=== PATIENT | female | born 1990 | race Hispanic/Latino ===

== ENCOUNTER 2023-12-03 15:26 | Emergency (ER) | payer SELFPAY ==
[2023-12-03 15:27] VITALS: BP 101/54; PULSE 121; RESP 19; TEMP 37.3; O2SAT 93
[2023-12-03 15:32] VITALS: BMI 36.9
--- NOTE | 2023-12-03 15:42 | EX.ED.DYSGE1 ---
HPI History of Present Illness Chief Complaint: Fever Informant: patient Limited: language barrier Onset/Context/Timing Onset: Days (3) Timing: Continuous Quality: Subjective fevers Location: Generalized Associated Symptoms Associated Symptoms ED: chest pain, headache, test positive and sore throat Narrative Narrative: Patient presents with fever that has been constant for the past 3 days. Patient did not take her temperature at home. Patient states she felt warm and covered up with a blanket. Patient states nothing makes her fever better and nothing makes it worse. Patient states that she was recently treated for tuberculosis while she was in [place]. Patient states she took the antibiotics for 4 months. Patient states that she stopped taking the antibiotics when she found out she was . Patient admits to some lower abdominal pain. Patient states the pain radiates into her back. Patient states her pain goes down her lower extremities. Patient denies any dysuria or hematuria. Panflu higher risk groups: [facility] Medical History (Updated 12/03/23 @ 23:[address] Kb Rivera DO) Tuberculosis Home Medications ?Medication ?Instructions ?Recorded ?Last Taken ?Type amoxicillin 875 mg-potassium 875 mg PO Q12H #20 TABLETS 12/03/23 Unknown Rx clavulanate 125 mg tablet Allergy/AdvReac Type Severity Reaction Status Date / Time No Known Allergies Allergy Verified 12/03/23 15:32 Surgical History no surgical history no surgical history Social History Smoking Status: Never smoker ROS ROS ED Constitutional Constitutional ED: Denies chills, fever(s) or sweats Eyes Eyes: Denies blurry vision or change in vision ENT ENT ED: Reports sore throat; Denies rhinorrhea Cardiovascular Cardiovascular: Reports chest pain; Denies palpitations Respiratory/Chest Respiratory/Chest: Denies cough or dyspnea Gastrointestinal Gastrointestinal: Denies nausea or vomiting Genitourinary Genitourinary ED: Denies dysuria or hematuria Musculoskeletal Musculoskeletal: Reports back pain; Denies neck pain Integumentary Denies abscess or rash Neurologic Neurologic: Reports headache(s); Denies weakness Allergic/Immunologic Allergic/Immunologic ED: Denies mouth swelling or urticaria EXAM Physical Exam Const Vital Signs: 12/03/23 15:27 12/03/23 19:00 12/03/23 20:34 Temperature 99.2 F H 98.3 F Temperature Source Temporal Oral Pulse Rate 121 H 88 79 Pulse Rate [Lying] Pulse Rate [Sitting (for 1 minute prior to obtaining)] Pulse Rate [Standing (for 1 minute prior to obtaining)] Respiratory Rate 19 H 18 18 Blood Pressure 101/54 L 89/54 L 93/54 L Blood Pressure [Lying] Blood Pressure [Sitting (for 1 minute prior to obtaining)] Blood Pressure [Standing (for 1 minute prior to obtaining)] Blood Pressure Mean 69 65 67 Blood Pressure Mean [Lying] Blood Pressure Mean [Sitting (for 1 minute prior to obtaining)] Blood Pressure Mean [Standing (for 1 minute prior to obtaining)] Pulse Ox 93 93 97 Oxygen Delivery Method Room Air Room Air Room Air 12/03/23 22:00 12/03/23 22:06 Temperature Temperature Source Pulse Rate 86 Pulse Rate [Lying] 89 Pulse Rate [Sitting (for 1 minute prior to obtaining)] 88 Pulse Rate [Standing (for 1 minute prior to obtaining)] 99 Respiratory Rate 17 Blood Pressure 92/59 L Blood Pressure [Lying] 83/53 L Blood Pressure [Sitting (for 1 minute prior to obtaining)] 100/66 Blood Pressure [Standing (for 1 minute prior to obtaining)] 72/63 L Blood Pressure Mean 70 Blood Pressure Mean [Lying] 63 Blood Pressure Mean [Sitting (for 1 minute prior to obtaining)] 77 Blood Pressure Mean [Standing (for 1 minute prior to obtaining)] 66 Pulse Ox 98 Oxygen Delivery Method Room Air Positive well nourished, well developed, alert and oriented x3 General Appearance ED: well developed Orientation / Consciousness: awake HEENT Reports normocephalic normocephalic and atraumatic Neck full ROM, No nuchal rigidity, supple, no meningeal signs and no JVD Resp normal respiratory effort and clear to auscultation bilaterally Cardio regular rate and regular rhythm GI soft to palpation and non-distended Palpation: tender RLQ and suprapubic; Negative for guarding or rebound tenderness present Extremity full ROM General Extremety ED: Yes calf tenderness General Extremity: calf tenderness Neuro oriented x3, CN's II-XII intact bilaterally, moves all extremities, no focal motor deficits and no sensory deficits noted Libia Coma Scale: document GCS findings Spontaneous Obeys Commands Oriented 15 Sensorium / Orientation: awake and alert Meningeal Signs: no meningeal signs Speech: speech normal Motor Exam: muscle tone normal throughout Psych mental status grossly normal MDM MDM MDM Narrative Medical decision making narrative: Differential diagnosis includes pneumonia, tuberculosis, strep pharyngitis, viral pharyngitis, urinary tract infection, ovarian cyst, ectopic , DVT, and electrolyte abnormality. Chest x-ray will be obtained to assess for pneumonia. Urinalysis will be obtained to assess for urinary tract infection. Quantitative hCG will be obtained to assess for . Venous duplex of the lower extremities will be obtained to assess for DVT. CBC will be obtained to assess for leukocytosis and anemia. Basic metabolic profile will be obtained to assess for electrolyte abnormality and renal function. GC and Chlamydia PCR will be obtained to assess for STDs. Rapid strep will be obtained to assess for strep pharyngitis. COVID-19, influenza, and RSV PCR will be obtained to assess for viral illness. Blood cultures will be obtained to assess for sepsis. Urine culture will be obtained to assess for urinary tract infection. Blood type and Rh will be obtained to assess for blood type. Lab Data Attestation: I reviewed the patient's lab results. Lab results narrative: CBC was reviewed and was within normal limits. Basic metabolic profile was reviewed. Potassium was slightly low at 3.3. Sodium was slightly low at 131. The remainder was essentially within normal limits. PT with INR and PTT were reviewed. Pro time was 16.1. INR was 1.3. PTT was 38.2. Urinalysis was reviewed. There is no evidence of urinary tract infection or hematuria. Lactate was reviewed and was normal at 1.2. Quantitative hCG was reviewed and was [address]. COVID-19 PCR was reviewed and was negative. Influenza PCR was reviewed and was negative for influenza A and influenza B. RSV PCR was reviewed and was negative. Rapid strep PCR was reviewed and was negative. GC and Chlamydia PCR was reviewed and was negative. Labs: Laboratory Results - last 24 hr 12/03/23 12/03/23 16:00 16:48 WBC 8.0 RBC 4.85 Hgb 12.2 Hct 38.0 MCV 78.4 L MCH 25.2 L MCHC 32.1 RDW Std Deviation 43.4 RDW Coeff of Ken 15.3 H Plt Count 326 MPV 9.5 Immature Gran % (Auto) 0.400 Neut % (Auto) 81.9 H Lymph % (Auto) 9.9 L [place] % (Auto) 7.4 Eos % (Auto) 0.1 Baso % (Auto) 0.3 Absolute Neuts (auto) 6.5 Absolute Lymphs (auto) 0.79 L Nucleated RBC % 0 PT 16.1 H INR 1.3 APTT 38.2 H Sodium 131 L Potassium 3.3 L Chloride 100 Carbon Dioxide 24.0 Anion Gap 7 BUN 5 L Creatinine 0.44 L Estim Creat Clear Calc 195.07 Est GFR (MDRD) Af Amer 213 Est GFR (MDRD) Non-Af 176 BUN/Creatinine Ratio 11.3 Glucose 103 Lactic Acid 1.2 Calcium 8.6 HCG, Quant 02976 H Urine Color Yellow Urine Clarity Clear Urine pH 6.0 Ur Specific Line [place] 1.020 Urine Protein 30 H Urine Glucose (UA) Normal Urine Ketones 5 H Urine Occult Blood 10 H Urine Nitrite Negative Urine Bilirubin 1 H Urine Urobilinogen 8 H Ur Leukocyte Esterase 25 H Urine RBC 0 SEEN Urine WBC 0 SEEN Ur Squamous Epith Cells 0-5 SEEN Urine Bacteria 0 SEEN Urine Mucus 0 SEEN Radiography Chest X-Ray - ED: 2 View, Read by ED Physician, Read by Radiologist and Right Infiltrate Diagnostic Testing: Clinical Impression(s) from Imaging Studies Venous Doppler Study 12/03/23 16:05 Interpretation Summary Deep veins of the bilateral lower extremities are patent and compressible segmentally. There is no evidence of bilateral lower extremity deep vein thrombosis. The bilateral great saphenous veins appear patent and compressible segmentally. Ordering Physician: Kb Rivera Performed By: Ralph Pedroza, T Chest X-Ray 12/03/23 16:59 IMPRESSION: Right upper lobe consolidation and volume loss. Bilateral interstitial prominence and patchy infiltrates.. Electronically Signed: Paul Dougherty DO at 17:09 EDT , Obstetrics Ultrasound 12/03/23 17:19 IMPRESSION: Single intrauterine gestation 7 weeks 4 days with estimated due date July 17, 2024. Electronically Signed: Bridger New MD at 18:16 EDT , Venous duplex of the lower extremities was obtained. There is no evidence of DVT. PA and lateral chest x-rays obtained. There are 2 views. On my independent interpretation, there is a right upper lobe infiltrate and consolidation. Bony thorax is normal. There is no cardiomegaly noted. Radiologist also interpreted the x-ray and agrees. Pelvic ultrasound was obtained. There is a single intrauterine gestation of 7 weeks 4 days. There is no evidence of ectopic . This was interpreted by the radiologist was also independently reviewed by myself. Management Discussion w/another healthcare provider: [facility] (Dr. Nugent from infectious disease) Treatment and Re-Evaluation :: Patient was given IV fluids. Patient was given Tylenol for her fever. Patient was advised of her findings. Case was discussed with Dr. Nugent from infectious disease. He stated that since the patient had been on TB treatment for 4 months, he does not believe that this is an active TB. He does not feel the patient needs to be treated with antituberculosis medications. He recommended covering the patient with community-acquired pneumonia antibiotics. Patient was given Rocephin and Zithromax here. Patient was given a prescription for Augmentin. Patient was instructed to follow-up with the health department. Patient understood and was agreeable with the plan. All questions were answered. Discharge Plan Triage Chief Complaint: Fever ED Provider: Kb Rivera Dx/Rx/DC Orders Clinical Impression: Pneumonia, Instructions: ED Pneumonia (Adult), ED Prescriptions: New amoxicillin-pot clavulanate 875-125 mg tablet 875 mg PO Q12H Qty: 20 0RF Primary Care Provider: Care Physician,No Primary Referrals: Kelsey Dias MD [Med Staff - Active Staff] - 5-7 Days Vira Feliz [Non-Staff] - 5-7 Days Trung Webb [Non-Staff] - 5-7 Days Activity Restrictions/Additional Instructions: Follow-up with the [facility] in 5 to 7 days. Take your antibiotics as prescribed. Continue using Tylenol as needed for fevers. Print Language: Bhutanese Disposition Disposition: Home, Self Care
--- NOTE | 2023-12-03 16:05 | VDLE_ITS ---
Reason For Study: BLE Pain RIGHT LEFT GSV is normal. GSV is normal. CFV is compressible, spontaneous, phasic, CFV is compressible, spontaneous, phasic, competent and demonstrates normal competent, and demonstrates normal augmentation. augmentation. FV is compressible, spontaneous, phasic, FV is compressible, spontaneous, phasic, competent and demonstrates normal competent and demonstrates normal augmentation. augmentation. POP V is compressible, spontaneous, phasic, POP V is compressible, spontaneous, phasic, competent and demonstrates normal competent and demonstrates normal augmentation. augmentation. T/P Trunk is compressible. T/P Trunk is compressible. PTV is compressible. PTV is compressible. RT PerV is compressible. LT PerV is compressible. Procedure This is a venous duplex using B-mode, color flow and spectral Doppler. Exam performed portable in ED. The exam was diagnostic. A preliminary report was called and/or faxed to Dr. Rivera. VL/Venous Duplex US - Gabriel Extrem Interpretation Summary Deep veins of the bilateral lower extremities are patent and compressible segme ntally. There is no evidence of bilateral lower extremity deep vein thrombosis. The bilateral great saphenous veins appear patent and compressible segmentally. Ordering Physician: Kb Rivera Performed By: Ralph Pedroza RVT
[2023-12-03 16:17] LABS: Bacteria 0 SEEN /hpf (None Seen); Mucous, Urine 0 SEEN /hpf (<or=2+); Red Blood Cells-Urine 0 SEEN /hpf (0-5); White Blood Cells 0 SEEN /hpf (0-5)
[2023-12-03 16:27] LABS: Color, Urine Yellow (Yellow); Glucose, Dipstick Normal (Normal); Ketone-Dipstick 5 mg/dl (Negative); Leukocyte Esterase-Dipstick 25 /ul (Negative); Nitrite-Dipstick Negative (Negative); Occult Blood-Urine 10 /ul (Negative); Protein-Dipstick 30 mg/dl (Negative); Urine Clarity Clear (Clear); Urine Urobilinogen 8 mg/dl (Normal)
[2023-12-03 16:29] LABS: Absolute Lymphocyte Count 0.79 X10^3/uL (0.83-4.51); Absolute Neutrophil Count 6.5 X10^3/uL (2.0-7.7); Basophil# 0.02 X10^3/uL; Basophil% 0.3 % (0-1); Eosinophil# 0.01 X10^3/uL; Eosinophils% 0.1 % (0-5); Hemoglobin 12.2 g/dL (12.0-15.0); Lymphocyte # 0.79 X10^3/ul (0.83-4.51); Lymphocyte % 9.9 % (19-41); Mean Corp Hgb Conc 32.1 g/dL (32-36); Mean Corpuscular Hgb 25.2 pg (27.0-32.0); Mean Corpuscular Volume 78.4 fL (81-99); Mean Platelet Vol. 9.5 fl (6.2-12.0); Monocyte# 0.59 X10^3/uL; Monocyte% 7.4 % (0-10); NRBC Flagged by Analyzer 0 % (0-5); Neutrophil # 6.52 X10^3/uL (2.7-7.7); Neutrophil % 81.9 % (47-70); Platelet Count 326 K/mm3 (150-450); RBC Distribution Width CV 15.3 % (11.6-14.6); RBC Distribution Width SD 43.4 fl (35.1-43.9); Red Blood Count 4.85 M/mm3 (4.2-5.4)
[2023-12-03 16:33] LABS: International Normalized Ratio 1.3; Prothrombin Time (Protime)PT. 16.1 SECONDS (11.7-14.9)
[2023-12-03 16:34] LABS: Partial Thromboplast Time 38.2 Seconds (24.1-36.2)
[2023-12-03 16:40] LABS: Anion Gap 7 (5-15); BUN 5 mg/dL (7-18); BUN/Creat Ratio 11.3 RATIO (10-20); Calcium,Total 8.6 mg/dL (8.5-10.1); Chloride 100 mmol/L (98-107); Creatinine, Serum 0.44 mg/dL (0.55-1.02); EST Glomerular Filtration Rate 176 mL/min (>60); Est Glom Filt Rate - Afr Amer 213 mL/min (>60); Estimated Creatinine Clearance 195.07 ml/min; Glucose 103 mg/dL (74-106); Potassium 3.3 mmol/L (3.5-5.1); Sodium Level 131 mmol/L (136-145)
[2023-12-03 16:48] LABS: Urine Bilirubin Dipstick 1 mg/dL (Negative)
[2023-12-03 16:49] LABS: Squamous Epithelial Cells - UA 0-5 SEEN /hpf (5-10)
[2023-12-03] MEDS: Acetaminophen 500 MG Tablet 1000 MG PO (16:50)
[2023-12-03] MEDS: 0.9% Normal Saline (1000mL) 1,000 ML 1000 ML IV ×3 (16:50→22:21)
--- NOTE | 2023-12-03 16:59 | RAD_ITS ---
INDICATION: Fever EXAMINATION/TECHNIQUE: X-RAY - XR Chest 2 Views COMPARISON: FINDINGS: LINES/DEVICES: None. LUNGS: Right upper lobe consolidation and volume loss. Bilateral interstitial prominence and patchy infiltrates.. No pneumothorax. MEDIASTINUM AND CARDIOVASCULAR STRUCTURES: Cardiac silhouette not enlarged. Central airways and mediastinal contour are unremarkable. BONES AND SOFT TISSUES: Unremarkable.
[2023-12-03 17:10] LABS: hCG Titer Quant., Serum 58623 mIU/mL (1-3)
--- NOTE | 2023-12-03 17:19 | US_ITS ---
STUDY: FIRST TRIMESTER OBSTETRICAL ULTRASOUND REASON FOR EXAM: Female, 32 years old Pelvic pain LMP: October 09, 2023 TECHNIQUE: Transvaginal. TECHNICAL QUALITY: Adequate. PRIOR ULTRASOUND: None. FINDINGS: There is visualization of a single gestational sac in a normal intrauterine position. The mean sac diameter (MSD) measures 2.4 cm, indicating an estimated gestational age (EGA) of 7 weeks, 3 days. The gestational sac shape is within normal limits. There is a visualized yolk sac. The yolk sac measures 0.6 cm. The placenta is non-visualized. There is visualization of a live embryo. The crown-rump length (CRL) measures 1.3 cm, indicating an estimated gestational age (EGA) of 7 weeks, 4 days. There is demonstrated cardiac activity with a heart rate of 153 bpm. The estimated gestation age (EGA) by LMP is 7 weeks, 6 days. The estimated date of delivery (BRIDGET) by LMP is July 15, 2024. The estimated gestation age (EGA) by US is 7 weeks, 4 days. The estimated date of delivery (BRIDGET) by US is July 17, 2024. The uterus measures 10.3 x 7.0 x 5.4 cm. There is no demonstrated uterine fibroid. The cervix is closed. The right ovary measures 3.8 x 2.5 x 1.6 cm. There is a 1.4 cm right ovarian cyst. There is no visualized right adnexal mass or complex lesion. The left ovary measures 2.4 x 1.6 x 1.1 cm. There is no left ovarian cyst. There is no visualized left adnexal mass or complex lesion. There is mild fluid in the cul de sac. US/Transvaginal w/Preg US IMPRESSION: Single intrauterine gestation 7 weeks 4 days with estimated due date July 17, 2024. Electronically Signed: Bridger New MD at 18:16 EDT ,
[2023-12-03 17:37] LABS: Lactic Acid 1.2 mmol/L (0.4-1.9)
[2023-12-03 19:00] VITALS: BP 89/54; PULSE 88; RESP 18; TEMP 36.8; O2SAT 93
[2023-12-03] MEDS: Ceftriaxone 2 GM in 0.9% Normal Saline (50mL MB+) 50 ML IV (19:52)
[2023-12-03 20:34] VITALS: BP 93/54; PULSE 79; RESP 18; O2SAT 97
[2023-12-03] MEDS: Azithromycin 500 MG in Dextrose 5%-Water (250mL Bag) 250 ML 250 MG IV (21:25)
[2023-12-03 22:00] VITALS: BP 92/59; PULSE 86; RESP 17; O2SAT 98
[2023-12-03 22:06] VITALS: BP 100/66; BP 72/63; BP 83/53; PULSE 88; PULSE 89; PULSE 99
[2023-12-03 23:48] VITALS: BP 95/61; PULSE 80; RESP 17; TEMP 36.2; O2SAT 99
== END 2023-12-03 23:58 | disposition home or self-care (01) ==
PROVIDERS: Emergency Provider Emergency Medicine; Visit Provider Emergency Medicine
DX: O26.891 Other specified pregnancy related conditions, first trimester (principal); J18.9 Pneumonia, unspecified organism; Z3A.01 Less than 8 weeks gestation of pregnancy; R50.9 Fever, unspecified; O99.891 Other specified diseases and conditions complicating pregnancy; R07.9 Chest pain, unspecified; O99.511 Diseases of the respiratory system complicating pregnancy, first trimester
CPT/HCPCS: 71046; 76817; 80048; 81001; 83605; 84702; 85025; 85610; 85730; 86900; 86901; 87040; 87086; 87491; 87591; 87631; 87651; 93970; 96361; 96365; 96367; 99284; J7030; J7050; A4216; J0696